=== PATIENT | female | born 2000 | race African-American/Black ===

== ENCOUNTER 2023-02-10 05:53 | Emergency (ER) | payer OTHER ==
[2023-02-10 06:08] VITALS: BP 127/88; PULSE 89; RESP 18; TEMP 98.3; BMI 17.7
[2023-02-10] MEDS ORDERED: IBUPROFEN 600 MG TABLET (FP) PO ONE ×2 (07:27→07:58)
== END 2023-02-10 09:06 | disposition home or self-care (01) ==
LOC: JER 05:53
DX: S60.922A Unspecified superficial injury of left hand, initial encounter (principal); M25.531 Pain in right wrist; W23.1XXA Caught, crushed, jammed, or pinched between stationary objects, initial encounter
CPT/HCPCS: 73130-TC-LT-FY; 99283-25

== ENCOUNTER 2024-02-10 18:26 | Emergency (ER) | payer OTHER ==
[2024-02-10 18:42] VITALS: BP 126/83; PULSE 105; RESP 16; TEMP 98.2; BMI 23.6
[2024-02-10 20:31] LABS: METHADONE, UR NEGATIVE (NEGATIVE); PHENCYCLIDINE,URINE NEGATIVE (NEGATIVE)
[2024-02-10 20:32] LABS: COCAINE, UR NEGATIVE (NEGATIVE); URINE AMPHETAMINES NEGATIVE (NEGATIVE)
[2024-02-10 20:35] LABS: OPIATES, URI NEGATIVE (NEGATIVE)
[2024-02-10 20:36] LABS: URINE BARBITURATES NEGATIVE (NEGATIVE); URINE BENZODIAZEPINES NEGATIVE (NEGATIVE)
== END 2024-02-10 20:16 | disposition home or self-care (01) ==
LOC: JER 18:26
DX: F32.A Depression, unspecified (principal)
CPT/HCPCS: 80307; 99283-25